=== PATIENT | male | born 1950 | race Caucasian/White ===

== ENCOUNTER 2017-07-11 09:28 | Emergency (ER) | payer MEDICARE, OTHER ==
[~2017-07-11] VITALS: Ht 172.7 cm; Wt 100.0 kg
[~2017-07-11 09:28] MED LIST: ACET325T51 PO; CHOL10008 PO; CITA40TA PO; FOLI-89 PO; METF500T4 PO; OMEP40CA36 PO
[2017-07-11 09:29] VITALS: BP 165/80; PULSE 69; RESP 16; O2SAT 98
--- NOTE | 2017-07-11 09:54 | ED.REPORT ---
HPI-General Illness Date of Service Jul 11, 2017 ED Provider: Bautista Hooks MD Patient is a 67 year old male with a history of alcohol abuse, PTSD, diabetes with neuropathy and rectal cancer who presents to the ED with his for increasing confusion over the last 3 weeks. Associated symptoms include headache. He denies chest pain, abdominal pain, cough, fever or vomiting. The patient reports he gets confused but is unable to give more history. Per the patient's , the patient has been forgetting things such as where familiar items are in the house or directions to familiar places and becomes agitated. She also reports that he has been withdrawn and inattentive. The patient's also reports that the patient has continued to abuse alcohol after getting a DUI three months ago and has scheduled rehab treatment in the next month. Patient states his last drink was around 1900 last night. The patient's states that he normally has at least 6 drinks every other day. They do not have alcohol at home but go to the bar everyday to get drinks. Nursing Notes Stated Complaint: MEMORY LOSS/CONFUSION Chief Complaint: Neuro Symptoms/ Deficits Nursing Notes Reviewed: Yes Allergies: Coded Allergies: meperidine (Verified Adverse Reaction, Severe, FAINTING, 09/26/15) Scheduled Cholecalciferol (Vitamin D3) (Vitamin D3) 1,000 Unit Tab.chew 2,000 UNIT PO DAILY Citalopram Hydrobromide (Celexa) 40 Mg Tablet 40 MG PO DAILY Folic Acid/Multivits-Min/Lut (Multi-Vitamin Gummies) 1 Each Tab.chew 1 EACH PO DAILY Metformin (Metformin) 500 Mg Tablet 250-500 MG PO BID Omeprazole (Omeprazole) 40 Mg Capsule.dr 40 MG PO DAILY Scheduled PRN Acetaminophen (Acetaminophen) 325 Mg Tablet 325 MG PO Q4H PRN PRN For Pain General Time Seen by MD: 09:44 Chief Complaint Altered mental status Hx Obtained From: Patient Unable to Obtain Hx: Patient condition, Mental status Arrived By: Walk-in Sudden in Onset?: No Onset Occurred: More than a week ago... (3 weeks) Symptom Duration: Since onset Location: : Head Quality: Painful Radiation: : Does not radiate Recent Healthcare: Recent doctor visit Similar Sx Previous: No Past Medical History Past Medical History rectal cancer melanoma Galarza's esophagus Reports: Diabetes mellitus Past Surgical History hemorrhoidectomy rectal tumor dissection Reports: Tonsillectomy Smoking History Never Smoker Social History Alcohol Use: >5 per day Other Social History: Good social support Ambulatory Status Independent Review of Systems Full Review of Systems Constitutional: Denies: Fever Respiratory: Denies: Non-productive cough Cardiovascular: Denies: Chest pain GI: Denies: Abdominal pain, Vomiting Neurologic: Reports: Confusion, Headache Psychiatric: Reports: Agitation Complete sys rev & neg: except as marked. Physical Exam Vital Signs Vital Signs Date Time Temp Pulse Resp B/P Pulse Ox O2 Delivery O2 Flow Rate FiO2 07/11/17 13:06 70 20 154/75 97 Room Air 07/11/17 11:52 73 20 168/80 100 Room Air 07/11/17 09:29 36.5 69 16 165/80 98 Room Air Initial VS: Reviewed General/Constitutional: Awake, Alert Head / Eyes: Atraumatic, Normocephalic, No nystagmus Neck: Atraumatic, Supple, Non-tender Respiratory / Chest: Atraumatic, Breath sounds NL, Breath sounds = bilat, No respiratory distress Cardiovascular: Heart rate NL, Regular rhythm, Heart sounds NL Abdomen: Atraumatic, Soft, Non-tender Upper Extremities Upper Extremity / MS: Atraumatic, Inspection NL Lower Extremity / Pelvis / MS: Atraumatic, No edema Skin: Warm, Dry Mental Status: Positive: Confused NEURO: Folstein mini mental status performed at 1008: 9/30 no ataxia in the upper extremities Interpretation & Diagnostics Interpretation & Diagnostics: BRAIN MRI: IMPRESSION: 1. A 4.0 x 3.5 x 3.9 cm mass in the left parietal lobe with marked vasogenic edema causing effacement of the occipital horn the left lateral ventricle and 4 mm rightward midline shift. Differential diagnoses include neoplasm such as primary SPOT WELDER or metastasis, and less likely, an infectious process such as an intracerebral abscess. 2. The result was discussed with Dr. Hooks in ER on 07/11/2017 at 1125 hrs. Dictated by: Alla Bee M.D. on 07/11/2017 at 11:20 Approved by: Alla Bee M.D. on 07/11/2017 at 11:44 Lab Results Interpretation Result Diagram: 07/11/17 0950 07/11/17 0950 Test 07/11/17 09:50 07/11/17 11:39 White Blood Count 6.5th/mm3 (3.8-10.1) Red Blood Count 4.23mil/mm3 (4.40-5.80) Hemoglobin 12.9g/dL (13.8-17.2) Hematocrit 38.6% (41.0-50.0) Mean Corpuscular Volume 91.3fL (81-100) Mean Corpuscular Hemoglobin 30.5pg (27.0-35.0) Mean Corpuscular Hemoglobin Concent 33.4% (32.0-37.0) Red Cell Distribution Width 13.7% (12.3-15.4) Platelet Count 197bil/L (150-400) Neutrophils (%) (Auto) 66.8% (40-74) Lymphocytes (%) (Auto) 21.8% (14-46) Monocytes (%) (Auto) 7.7% (4-12) Eosinophils (%) (Auto) 3.1% (0-5) Basophils (%) (Auto) 0.3% (0-3) Sodium Level 139mEq/L (134-144) Potassium Level 4.3mEq/L (3.5-5.2) Chloride Level 104mEq/L (97-108) Carbon Dioxide Level 22mmol/L (18-29) Blood Urea Nitrogen 13mg/dL (8-27) Creatinine 0.91mg/dL (0.76-1.27) Estimat Glomerular Filtration Rate 89mL/min (>59) Glucose Level 140mg/dL (60-99) Calcium Level 8.8mg/dL (8.5-10.1) Total Bilirubin 0.2mg/dL (0.0-1.2) Aspartate Amino Transf (AST/SGOT) 22U/L (0-50) Alanine Aminotransferase (ALT/SGPT) 30U/L (0-44) Alkaline Phosphatase 76U/L (25-160) Total Protein 6.7g/dL (6.4-8.4) Albumin 3.9g/dL (3.4-5.0) Thyroid Stimulating Hormone (TSH) 2.490uIU/mL (0.450-4.500) Hold Barclay Top Tube Received (Received) Alcohols < 10mg/dL (0-10) Urine Color Yellow (YELLOW) Urine Appearance Hazy (CLEAR,HAZY) Urine pH 7.0 (5.0-8.0) Urine Specific Brooks 1.010 (1.003-1.035) Urine Protein Negativemg/dL (NEG,TRACE) Urine Glucose (UA) Negativemg/dL (NEGATIVE) Urine Ketones Negativemg/dL (NEGATIVE) Urine Occult Blood Negative (NEGATIVE) Urine Nitrite Negative (NEGATIVE) Urine Bilirubin Negative (NEGATIVE) Urine Urobilinogen Normalmg/dL (NORMAL) Urine Leukocyte Esterase Negative (NEGATIVE) Urine RBC 0-2/hpf (0-2) Urine WBC 0-5/hpf (0-5) Urine Epithelial Cells Occasional/hpf (NONE-MOD) Urine Crystals None seen (NONE SEEN) Urine Bacteria None/hpf (NONE-FEW) Urine Hyaline Casts None/lpf (NONE) Urine Granular Casts None seen (NONE SEEN) Urine Waxy Casts None seen (NONE SEEN) Urine Red Blood Cell Casts None seen (NONE SEEN) Urine White Blood Cell Casts None seen (NONE SEEN) Urine Mucus None seen (None Seen) Urine Trichomonas None seen (NONE SEEN) Urine Yeast None (NONE SEEN) Urinalysis Comment None Urine Culture Reflexed Not indicated Re-Eval/Medical Decision Time of Eval: 11:34 Re-Evaluation/Progress Note: Discussed MRI results, diagnosis and plan for transfer to [facility]. Patient understands and agrees to plan. All questions were addressed. Time of Eval: 12:47 Re-Evaluation/Progress Note: Updated patient of transfer status and further answered questions. Consultation #1: Referral / Consult Name: Jeanne Keene MD Consulted With: On-call physician Call Returned at: 11:28 Note: Consult with Dr. Keene, oncologist, who recommends Decadron and transferring. Consultation #2: Consulted With: Neurosurgery Call Returned at: 12:39 Director Of Community Education: Agrees with eval, Agrees with plan, Accepts admit Note: Consult with Dr. Chou, from [facility], who accepts the transfer Counseled Regarding: Diagnosis, Lab results, Need for transfer Discharge & Departure Primary Impression: Acute confusion Additional Impression: Brain mass Disposition: Transfer, Acute Care Facility Call returned time Receiving Hospital: [facility] Transfer Accepted: Yes Transfer Accepted at: 12:39 Transfer Reason: Higher level of care Spoke with: Attending physician Patient Status: Stable Patient Informed: Yes Discharge Condition All VS Reviewed: Yes Condition: Stable Referrals: Bahman Dee MD (PCP) Dylan Attestation Portions of this note were transcribed by Rhianna Germain. I, Dr. Hooks personally performed the history, physical exam and medical decision-making; I reviewed and confirmed the accuracy of the information in the transcribed note. Signed by: Dylan Pelayo, 07/11/17 copies to: Bahman Dee MD, Kirk H MD Jul 11, 2017 09:54 Cesia Germain Jul 11, 2017 10:05
[2017-07-11 10:07] LABS: BASOPHILS % (AUTO) 0.3 % (0-3); EOSINOPHILS % (AUTO) 3.1 % (0-5); MONOCYTES % (AUTO) 7.7 % (4-12); Mean Corpuscular Hemoglobin 30.5 pg (27.0-35.0); Mean Corpuscular Volume 91.3 fL (81-100); NEUTROPHILS % (AUTO) 66.8 % (40-74); Platelet Count 197 bil/L (150-400)
[2017-07-11] MEDS ORDERED: Multivitamin w/Vit K Inj 10 ML, Thiamine Inj 100 MG, Folic Acid Inj 1 MG, Magnesium Sul... IV ONE ×5 (10:22)
--- NOTE | 2017-07-11 11:46 | DRSVH ---
PROCEDURE: MRI BRAIN WITH AND WITHOUT CONTRAST ([id number]) INDICATIONS: SEVERE SUDDEN CONFUSION TECHNIQUE: Noncontrast axial T1 spin echo, axial T2 fast spin echo, sagittal and axial FLAIR, coronal T2 fast sp in echo, axial gradient echo, axial diffusion and ADC through the brain. After the administration of contrast, axial and coronal T1 spin echo with fat saturation through the brain. COMPARISON: None. FINDINGS: Image quality: Excellent. CSF spaces: Basal cisterns are patent. No extra-axial fluid collections. Ventricles are normal in size and shape. Brain: There is a ring enhancing mass in the left parietal lobe measuring 4.0 x 3.5 x 3.9 cm. There is marked vasogenic edema in the left parietal lobe. There is effacement of the occipital horn the le ft lateral ventricle and 3 mm rightward midline shift. No intracranial bleeds. There is mild cerebra l volume loss for age. There is mild periventricular white matter chronic small vessel ischemic hanson ge. The brainstem appears normal. Diffusion-weighted images demonstrate no acute ischemic insults. No chronic ischemic insults. Normal intravascular flow voids are present. Skull and face: Calvarial marrow is normal in signal. Orbits appear normal. Sinuses: Sinuses and mastoids appear clear. IMPRESSION: 1. A 4.0 x 3.5 x 3.9 cm mass in the left parietal lobe with marked vasogenic edema causing effacement of the occipital horn the left lateral ventricle and 4 mm rightward midline shift. Differential diag noses include neoplasm such as primary TAG MARKER or metastasis, and less likely, an infectious process such as an intracerebral abscess. 2. The result was discussed with Dr. Hooks in ER on 07/11/2017 at 1125 hrs. Dictated by: Alla Bee M.D. on 07/11/2017 at 11:20 Approved by: Alla Bee M.D. on 07/11/2017 at 11:44
[2017-07-11] MEDS ORDERED: Dexamethasone Inj 10 MG in 0.9% Sodium Chloride-Pha MIX 50 ML IV ONE (11:50)
[2017-07-11 11:52] VITALS: BP 168/80; PULSE 73; RESP 20; O2SAT 100
[2017-07-11 12:13] LABS: APPEARANCE,URINE HAZY (CLEAR,HAZY); COLOR,URINE YELLOW (YELLOW); OCCULT BLOOD,URINE NEGATIVE (NEGATIVE); UROBILINOGEN,URINE NORMAL (NORMAL)
[2017-07-11] MEDS ORDERED: levETIRAcetam Inj 1,000 MG in IV Premix 1 EACH IV ONE (12:45)
[2017-07-11 13:06] VITALS: BP 154/75; PULSE 70; RESP 20; O2SAT 97
[2017-07-11 14:04] VITALS: BP 154/75; PULSE 70; RESP 20; O2SAT 97
== END 2017-07-11 13:40 | disposition short-term general hospital (02) ==
LOC: SED 09:28
DX: R41.0 Disorientation, unspecified (principal); G93.89 Other specified disorders of brain; R51 Headache; E11.9 Type 2 diabetes mellitus without complications; J45.909 Unspecified asthma, uncomplicated; Z85.820 Personal history of malignant melanoma of skin; Z85.048 Personal history of other malignant neoplasm of rectum, rectosigmoid junction, and anus; Z90.89 Acquired absence of other organs; Z98.890 Other specified postprocedural states; Z79.84 Long term (current) use of oral hypoglycemic drugs; Z88.8 Allergy status to other drugs, medicaments and biological substances
CPT/HCPCS: 36415; 70553; 80053; 81000; 82948; 84443; 85025; 96365; 96366; 96375; 99285; A9585; G0480; J1100; J1953; J3475; J7030